=== PATIENT | female | born 1995 | race African-American/Black ===

== ENCOUNTER 2016-09-25 00:14 | Emergency (ER) | payer SELFPAY ==
[~2016-09-25] VITALS: Ht 165.1 cm; Wt 59.0 kg
[~2016-09-25 00:14] MED LIST: DEPO400I IM; IBUP800T23 PO
[2016-09-25 00:17] VITALS: BP 117/78; PULSE 104; RESP 16; TEMP 98.4; O2SAT 100
[2016-09-25 00:25] VITALS: BP 187/86; PULSE 115; RESP 16; TEMP 97.6; O2SAT 99
[2016-09-25 02:14] VITALS: BP 119/78; PULSE 81; RESP 16; O2SAT 100
[2016-09-25] MEDS ORDERED: ONDANSETRON HCL 4 MG/2 ML VIAL IV ONE (02:30)
[2016-09-25] MEDS ORDERED: SODIUM CHLOR 0.9% 1000 ML INJ 1,000 ML IV ONE (02:30)
[2016-09-25 02:38] VITALS: RESP 16
--- NOTE | 2016-09-25 02:49 | PD ---
HPI Chief Complaint: Cold / Flu Symptoms Time Seen by Provider: 02:24 Travel History International Travel<30 days: No Contact w/Intl Traveler<30days: No History of Present Illness HPI The patient is a 21 year old female who presents to the [facility] emergency department with a history of body aches, frontal sinus headache, intermittent stomachache, and chest pain that she reports began earlier today. She reports that she has an associated clear rhinorrhea. She denies having any cough, sore throat, postnasal drip, vomiting, or diarrhea. She reports that she has had a diminished appetite today. On review of systems, any recent fevers, neck pain, chest pain, shortness of breath, abdominal pain, urinary symptoms, or neurologic symptoms. The patient denies having any known sick contacts. LMP: September 11, 2016. [facility] Past Medical History Narrative Medical The patient's past medical history is significant for none. Asthma: Yes ( CHILD) Diminished Hearing: No Immunizations Current: Yes Tetanus Vaccination: Unknown Influenza Vaccination: No ?: Unknown Menopausal: No : 0 Para: 0 Miscarriage: 0 : 0 Past Surgical History Narrative Surgical The patient's past surgical history is reportedly none. Surgical History: No Previous Surgery Social History Alcohol Use: Yes (1 DRINK A WEEK) Tobacco Use: No Substance Use: No Allergies-Medications (Allergen,Severity, Reaction): Coded Allergies: No Known Allergies (Verified , 09/25/16) Reported Meds & Prescriptions Reported Meds & Active Scripts Active Review of Systems Except as stated in HPI: all other systems reviewed are Neg General / Constitutional: No: Fever Eyes: No: Visual changes HENT: Positive: Headaches, Rhinorrhea, Congestion, No: Neck Stiffness, Neck Pain Cardiovascular: Positive: Chest Pain or Discomfort, No: Dyspnea on exertion Respiratory: No: Cough, Shortness of Breath Gastrointestinal: Positive: Abdominal Pain, No: Nausea, Vomiting, Diarrhea Genitourinary: No: Dysuria, Flank Pain Musculoskeletal: No: Pain Skin: No Rash Neurologic: Positive: Headache, No: Weakness, Focal Abnormalities, Change in Mentation, Slurred Speech, Sensory Disturbance Psychiatric: No: Depression Endocrine: No: Polydipsia Hematologic/Lymphatic: No: Easy Bruising Physical Exam Narrative General: The patient is a well-developed well-nourished female in no acute distress. Head and Neck exam: Head is normocephalic atraumatic. Sinuses: The patient reports having sinus tenderness on palpation over her frontal sinuses bilaterally. Eyes: EOMI, pupils are equal round and reactive to light. Nose: Midline septum with pink mucous membranes Mouth: Dentition unremarkable. Moist mucus membranes. Posterior oropharynx is not erythematous. No tonsillar hypertrophy. Uvula midline. Airway patent. Neck: No palpable lymphadenopathy. No nuchal rigidity. No thyromegaly. Cardiovascular: Regular rate and rhythm without murmurs, gallops, or rubs. Lungs: Clear to auscultation bilaterally. No wheezes, rhonchi, or rales. Abdomen: Soft, without tenderness to palpation in all 4 quadrants of the abdomen. No guarding, rebound, or rigidity. Normal bowel sounds are audible. No tenderness on palpation of McBurney's point. Negative [place] sign. At this time, the patient reports that she has no abdominal pain. Extremities: No clubbing, cyanosis, or edema. 2+ pulses in all 4 extremities. No calf tenderness on palpation. Back: No spinous process tenderness to palpation. No costovertebral angle tenderness to palpation. Neurologic Exam: Grossly nonfocal. Skin Exam: No rash noted. Intact skin that is warm and dry. Data Data Last Documented VS Vital Signs Date Time Temp Pulse Resp B/P Pulse Ox O2 Delivery O2 Flow Rate FiO2 09/25/16 02:38 16 09/25/16 02:14 81 119/78 100 Room Air 09/25/16 00:17 98.4 Orders Complete Blood Count With Diff (09/25/16 02:24) Comprehensive Metabolic Panel (09/25/16 02:24) Lipase (09/25/16 02:24) Urinalysis - C+S If Indicated (09/25/16 02:24) Magnesium (Mg) (09/25/16 02:24) Iv Access Insert/Monitor (09/25/16 02:24) Ecg Monitoring (09/25/16 02:24) Oximetry (09/25/16 02:24) Ed Urine Pregnancytest Poc (09/25/16 02:24) Sodium Chlor 0.9% 1000 Ml Inj (Ns 1000 M (09/25/16 02:30) Ondansetron Inj (Zofran Inj) (09/25/16 02:30) Urine Culture (09/25/16 02:45) Ketorolac Inj (Toradol Inj) (09/25/16 03:45) Labs Laboratory Tests Test 09/25/16 02:45 White Blood Count 4.6 TH/MM3 Red Blood Count 4.53 MIL/MM3 Hemoglobin 12.0 GM/DL Hematocrit 36.6 % Mean Corpuscular Volume 81.0 FL Mean Corpuscular Hemoglobin 26.6 PG Mean Corpuscular Hemoglobin 32.8 % Concent Red Cell Distribution Width 15.1 % Platelet Count 319 TH/MM3 Mean Platelet Volume 7.6 FL Neutrophils (%) (Auto) 38.8 % Lymphocytes (%) (Auto) 52.2 % Monocytes (%) (Auto) 7.4 % Eosinophils (%) (Auto) 0.7 % Basophils (%) (Auto) 0.9 % Neutrophils # (Auto) 1.8 TH/MM3 Lymphocytes # (Auto) 2.4 TH/MM3 Monocytes # (Auto) 0.3 TH/MM3 Eosinophils # (Auto) 0.0 TH/MM3 Basophils # (Auto) 0.0 TH/MM3 CBC Comment DIFF FINAL Differential Comment Urine Color YELLOW Urine Turbidity HAZY Urine pH 7.0 Urine Specific [place] 1.029 Urine Protein 30 mg/dL Urine Glucose (UA) NEG mg/dL Urine Ketones NEG mg/dL Urine Occult Blood NEG Urine Nitrite NEG Urine Bilirubin NEG Urine Urobilinogen 4.0 MG/DL Urine Leukocyte Esterase TRACE Urine RBC 3 /hpf Urine WBC 1 /hpf Urine Squamous Epithelial 3 /hpf Cells Urine Bacteria MOD /hpf Urine Hyaline Casts 1 /lpf Urine Mucus FEW /lpf Microscopic Urinalysis Comment CULTURE INDICATED Sodium Level 139 MEQ/L Potassium Level 4.0 MEQ/L Chloride Level 104 MEQ/L Carbon Dioxide Level 28.2 MEQ/L Anion Gap 7 MEQ/L Blood Urea Nitrogen 9 MG/DL Creatinine 0.73 MG/DL Estimat Glomerular Filtration 120 ML/MIN Rate Random Glucose 84 MG/DL Calcium Level 9.4 MG/DL Magnesium Level 1.9 MG/DL Total Bilirubin 0.2 MG/DL Aspartate Amino Transf 15 U/L (AST/SGOT) Alanine Aminotransferase 15 U/L (ALT/SGPT) Alkaline Phosphatase 65 U/L Total Protein 8.5 GM/DL Albumin 4.2 GM/DL Lipase 239 U/L [facility] Medical Decision Making Medical Screen Exam Complete: Yes Emergency Medical Condition: Yes Medical Record Reviewed: Yes Differential Diagnosis Acute sinusitis, versus viral syndrome, versus tension headache, versus electrolyte abnormality Narrative Course During the course of the patients emergency department visit, the patients history, examination, and differential diagnosis were reviewed with the patient. The patient had IV access obtained and blood work sent for analysis. The patient was placed on a monitoring specialist with oximetry and blood pressure monitoring. The patient was initially provided normal saline 1 L IV fluid bolus, Zofran 4 mg IV. The patients laboratory studies were reviewed and remarkable for a white count of 4.6, hemoglobin 12, platelets 319 with 52.2 lymphocytes suggestive of viral syndrome. CMP is within normal limits, lipase 239, urinalysis shows 30 protein , trace leukocyte esterase, moderate bacteria, culture indicated. There are no other signs of a urinary tract infection, therefore culture will be sent and if this comes back abnormal the patient will be called to be started on antibiotic. She denies having any urinary symptoms at this time. The patient will be discharged home with instructions to push fluids and get plenty of rest. The patient is instructed to take Tylenol as needed for discomfort as written on the package. The patient is resting comfortably and feels better, is alert and in no distress. The patients results and examination findings were discussed with the patient. The repeat examination is unremarkable and benign. The history, exam, diagnostic testing, and current condition do not suggest any significant pathology to warrant further testing, continued ED treatment, admission, or surgical evaluation at this point. The vital signs have been stable. The patient does not have uncontrollable pain, intractable vomiting, or other significant symptoms. The patient's condition is stable and appropriate for discharge. The patient will pursue further outpatient evaluation with a primary care physician or other designated or consulting physician as indicated in the discharge instructions. The patient expressed understanding and was agreeable with this plan. Diagnosis Primary Impression: Viral syndrome Referrals: Primary Care Physician 1 week Patient Instructions: General Instructions, Viral Syndrome (ED) Med/Other Pt SpecificInfo: No Meds Exist/No RX given Disposition: 01 DISCHARGE HOME Condition: Stable Ana Maria Nj MD Sep 25, 2016 02:49
[2016-09-25 02:58] LABS: AUTOMATED NEUTROPHIL # 1.8 TH/MM3 (1.8-7.7); BASOPHIL % 0.9 % (0.0-2.0); EOSINOPHIL % 0.7 % (0.0-4.0); HEMATOCRIT 36.6 % (35.0-46.0); HEMO FLAGS DIFF FINAL; LYMPH % 52.2 % (9.0-44.0); LYMPHOCYTE # 2.4 TH/MM3 (1.0-4.8); MEAN CORPUSCULAR HEMOGLOBIN 26.6 PG (27.0-34.0); MEAN CORPUSCULAR HGB CONC 32.8 % (32.0-36.0); MONO % 7.4 % (0.0-8.0); NEUT % 38.8 % (16.0-70.0); PLATELET COUNT 319 TH/MM3 (150-450); RED BLOOD COUNT 4.53 MIL/MM3 (4.00-5.30); RED CELL DISTRIBUTION WIDTH 15.1 % (11.6-17.2); WHITE BLOOD COUNT 4.6 TH/MM3 (4.0-11.0)
[2016-09-25 03:03] LABS: BACTERIA, URINE MOD /hpf; BLOOD, URINE NEG (NEG); COMMENT (UR) CULTURE INDICATED; CULTURE IF INDICATED CULTURE INDICATED; GLUCOSE,URINE NEG (NEG); HYALINE CAST, URINE 1 /lpf (RARE); KETONE, URINE NEG (NEG); MUCUS URINE FEW /lpf (OCC); NITRITE,URINE NEG (NEG); SQUAMOUS EPITHELIAL CELL URINE 3 /hpf (0-5); URINE COLOR YELLOW (YELLW/STRAW)
[2016-09-25 03:10] LABS: ALT (GPT) 15 U/L (10-53); ANION GAP 7 MEQ/L (5-15); AST (GOT) 15 U/L (15-37); BICARBONATE 28.2 MEQ/L (21.0-32.0); BLOOD UREA NITROGEN 9 MG/DL (7-18); CHLORIDE 104 MEQ/L (98-107); GLOMERULAR FILTRATION RATE 120 ML/MIN (>89); MAGNESIUM 1.9 MG/DL (1.5-2.5); SODIUM (NA) 139 MEQ/L (136-145)
[2016-09-25 03:13] LABS: ALKALINE PHOSPHATASE 65 U/L (45-117); TOTAL BILIRUBIN ADULT 0.2 MG/DL (0.2-1.0)
[2016-09-25] MEDS ORDERED: KETOROLAC TROMETHAMINE 30 MG/ML (IVP) VIAL IV PUSH ONE (03:45)
== END 2016-09-25 04:34 | disposition home or self-care (01) ==
LOC: NEPE 00:14
DX: B34.9 Viral infection, unspecified (principal); J45.909 Unspecified asthma, uncomplicated
CPT/HCPCS: 80053; 81001; 83690; 83735; 84703; 85025; 87086; 96374; 96375; 99284; J1885; J2405; J7030

== ENCOUNTER 2017-01-06 17:10 | Emergency (ER) | payer SELFPAY ==
[2017-01-06 17:12] VITALS: BP 124/68; PULSE 63; RESP 18; TEMP 98.5; O2SAT 98
--- NOTE | 2017-01-06 18:29 | PD ---
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 Patient has had severe cramping. She had mild cramping yesterday and worsened today. Pain was so severe today she had to call out of work. It occurs in waves, consistent with cramping. Does not radiate to the back. It is not unilateral. She started her menstrual cycle today. She took Motrin for pain but it did not relieve her symptoms. Patient used to be on control for severe cramping and bleeding but has not taken it for a while because she did not like preventing her body from being able to cleanse itself. 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 She denies possibility of . States she last had intercourse one year ago. She has no pain at this time. History Past Medical Histgory Menopausal: No Social History Alcohol Use: Yes (1 DRINK A WEEK) Tobacco Use: No Allergies-Medications (Allergen,Severity, Reaction): Coded Allergies: No Known Allergies (Verified , 01/06/17) Reported Meds & Prescriptions Reported Meds & Active Scripts Active Review of Systems Except as stated in HPI: all other systems reviewed are Neg Physical Exam Narrative GENERAL: Well-nourished, well-developed female in no acute distress. Afebrile. Ambulatory. Resting comfortably in bed. SKIN: Focused skin assessment warm/dry. HEAD: Normocephalic. EYES: No scleral icterus. No injection or drainage. NECK: Supple, trachea midline. No JVD or lymphadenopathy. CARDIOVASCULAR: Regular rate and rhythm without murmurs, gallops, or rubs. RESPIRATORY: Breath sounds equal bilaterally. No accessory muscle use. GASTROINTESTINAL: Abdomen soft, non-tender, nondistended. No peritoneal signs. No rebound tenderness or guarding. Data Data Last Documented VS Vital Signs Date Time Temp Pulse Resp B/P (MAP) Pulse Ox O2 Delivery O2 Flow Rate FiO2 01/06/17 17:12 98.5 63 18 124/68 (86) 98 MDM Medical Screen Exam Complete: Yes Emergency Medical Condition: No Differential Diagnosis Menstrual cycle Narrative Course 21-year-old female presents to the emergency room for severe cramping associated with her menstrual cycle. She had mild cramping yesterday and started her menstrual cycle today. Cramping today was so severe she had to call of work. She has had similar cycles in the past and used to be on control for it but stopped taking it. She denies possibility of , last had intercourse one year ago. She is currently pain-free. Pain only occurs in cramping quality. Abdomen soft, nontender. No peritoneal signs. Patient was told to take Tylenol or Motrin for pain and follow up with a gear shaper set up operator to restart control. She understands and agrees to plan. There are no urgent or emergent medical conditions at this time. A medical screening exam was performed: At the time of evaluation the presenting medical condition was determined not to be of an emergent nature. The patient was given the option of receiving additional care, but declined. Patient was given options for additional community resources from which to obtain care. The Patient Has Been advised to seek medical attention for their presenting complaint. The patient has been advised to return to the ER at any time if an emergent condition develops. Primary Impression: Encounter for medical screening examination Disposition: 01 DISCHARGE HOME Condition: Stable Terrie Zhu Jan 06, 2017 18:29
== END 2017-01-06 18:48 | disposition left against medical advice (07) ==
LOC: NEPK 17:10
DX: N94.6 Dysmenorrhea, unspecified (principal)
CPT/HCPCS: 99281

== ENCOUNTER 2017-06-11 07:22 | Emergency (ER) | payer BC ==
[~2017-06-11] VITALS: Ht 167.6 cm; Wt 57.0 kg
[2017-06-11 07:34] VITALS: BP 121/83; PULSE 88; RESP 20; TEMP 98.4; O2SAT 98
[2017-06-11] MEDS ORDERED: diphenhydrAMINE HCL 50 MG/ML VIAL IM ONE (09:45)
[2017-06-11] MEDS ORDERED: PROCHLORPERAZINE INJ 10 MG/2 ML VIAL IM ONE (09:45)
[2017-06-11] MEDS ORDERED: KETOROLAC TROMETHAMINE 60 MG/2 ML (IM) VIAL IM ONE (09:45)
--- NOTE | 2017-06-11 09:47 | PD ---
HPI Chief Complaint: Headache Time Seen by Provider: 09:20 Travel History International Travel<30 days: No Contact w/Intl Traveler<30days: No Traveled to known affect area: No History of Present Illness HPI 21-year-old otherwise healthy female presents to the emergency room for evaluation of bilateral, temporal headache that started 2 days ago. Patient had gradual onset of symptoms and has been gradually worsening. Severity moderate. She took Aleve and Tylenol yesterday without relief in symptoms. No alleviating or aggravating factors. States she has been depressed and stressed lately and thinks that may be contributing to her symptoms. She denies any fever, chills, nausea, vomiting, congestion, or upper respiratory infection symptoms. No personal or family history of stroke. No history of migraines. She denies any chronic medical conditions or daily medications. Patient denies suicidal or homicidal ideation. PFSH Past Medical History Medical History: Denies Significant Hx Asthma: Yes ( CHILD) Diminished Hearing: No Immunizations Current: Yes Tetanus Vaccination: < 5 Years ?: Not LMP: 2 WEEKS AGO Menopausal: No : 0 Para: 0 Miscarriage: 0 : 0 Past Surgical History Surgical History: No Previous Surgery Social History Alcohol Use: Yes (1 DRINK A WEEK) Tobacco Use: No Substance Use: No Allergies-Medications (Allergen,Severity, Reaction): Coded Allergies: No Known Allergies (Verified Adverse Reaction, Unknown, 06/11/17) Reported Meds & Prescriptions Reported Meds & Active Scripts Active No Active Prescriptions or Reported Medications Review of Systems Except as stated in HPI: all other systems reviewed are Neg Physical Exam Narrative GENERAL: Well-nourished, well-developed female no acute distress. Afebrile. Ambulatory. Talking on her cell phone. SKIN: Focused skin assessment warm/dry. HEAD: Normocephalic. EYES: No scleral icterus. No injection or drainage. NECK: Supple, trachea midline. No JVD or lymphadenopathy. CARDIOVASCULAR: Regular rate and rhythm without murmurs, gallops, or rubs. RESPIRATORY: Breath sounds equal bilaterally. No accessory muscle use. NEUROLOGICAL: Awake and alert. Cranial nerves II through XII intact. Motor and sensory grossly within normal limits. Five out of 5 muscle strength in all muscle groups. Normal speech. No pronator drift in upper or lower extremities. Negative Kernig and Brudzinski signs. PSYCHIATRIC: No delusional thought processes. No hallucinations. Flat affect. Depressed mood. Data Data Last Documented VS Vital Signs Date Time Temp Pulse Resp B/P (MAP) Pulse Ox O2 Delivery O2 Flow Rate FiO2 06/11/17 07:34 98.4 88 20 121/83 (96) 98 Orders Orders Prochlorperazine Inj (Compazine Inj) (06/11/17 09:45) Diphenhydramine Inj (Benadryl Inj) (06/11/17 09:45) Ketorolac Inj (Toradol Inj) (06/11/17 09:45) Ed Discharge Order (06/11/17 09:47) [facility] Medical Decision Making Medical Screen Exam Complete: Yes Emergency Medical Condition: Yes Medical Record Reviewed: Yes Differential Diagnosis Headache, tension headache, migraine, meningitis Narrative Course 21-year-old female presents to the emergency room for evaluation of gradual onset, bilateral, temporal headache for the past 2 days. Patient sitting up in the bright room, talking on her cell phone. Vital signs stable. No focal neurological deficits. No personal or family history of stroke. No meningismus. Consistent with tension headache. Patient given Toradol, Compazine, and Benadryl in the emergency room and discharged with instructions to follow-up with [facility] for outpatient management of depression. Told to return for worsening symptoms. She understands and agrees to plan. Diagnosis Primary Impression: Tension headache Referrals: [facility] Additional Instructions: Take ibuprofen with food as directed, as needed for pain. Follow-up with a primary care physician. Return to the emergency room for worsening symptoms. Scripts No Active Prescriptions or Reported Meds Disposition: 01 DISCHARGE HOME Condition: Stable Terrie Zhu Jun 11, 2017 09:47
== END 2017-06-11 10:04 | disposition home or self-care (01) ==
LOC: NEPK 07:22
DX: G44.209 Tension-type headache, unspecified, not intractable (principal)
CPT/HCPCS: 96372; 99284; J0780; J1200; J1885

== ENCOUNTER 2017-09-07 08:03 | Emergency (ER) | payer BC ==
[~2017-09-07] VITALS: Ht 167.6 cm; Wt 54.5 kg
[2017-09-07 08:13] VITALS: BP 129/80; PULSE 78; RESP 16; TEMP 98.8; O2SAT 99
[2017-09-07] MEDS ORDERED: IBUPROFEN 600 MG TAB PO ONE (08:45)
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
--- NOTE | 2017-09-07 09:12 | RADRPT ---
EXAM DATE: 09/07/2017 9:07 AM EDT AGE/SEX: 22 years / Female INDICATIONS: Fell on left knee last night CLINICAL DATA: This is the patient's initial encounter. Patient reports that signs and symptoms have been present for 1 day and indicates a pain score of 10/10. MEDICAL/SURGICAL HISTORY: None. None. COMPARISON: No prior exams available for comparison. FINDINGS: Bony structures are intact and in normal alignment. Joints are intact without dislocation or signifi cant arthropathy. Osseous density is normal. Soft tissues are unremarkable. No radiopaque foreign bodies seen. CONCLUSION: Negative for acute process Electronically signed by: Nader Oswald MD 09/07/2017 9:10 AM EDT
[2017-09-07] MEDS ORDERED: IBUP-232 PO (09:42)
== END 2017-09-07 10:08 | disposition home or self-care (01) ==
LOC: NEPD 08:03
DX: S80.02XA Contusion of left knee, initial encounter (principal); S00.83XA Contusion of other part of head, initial encounter; M54.5 Low back pain; Y09 Assault by unspecified means
CPT/HCPCS: 73564; 99283; E0113